=== PATIENT | male | born 1985 | race Caucasian/White ===

== ENCOUNTER 2023-04-24 18:22 | Emergency (ER) | payer SELFPAY ==
[2023-04-24 18:27] VITALS: BP 132/79; PULSE 76; RESP 20; TEMP 36.2; O2SAT 100; BMI 31.5
[2023-04-24] MEDS: 0.9 % SODIUM CHLORIDE 1000 ml 1,000 ML IV (19:01)
[2023-04-24] MEDS: ONDANSETRON 2 MG/ML inj 4 MG IVP (19:01)
--- NOTE | 2023-04-24 19:10 | ED_ITS ---
HPI - General Adult General Date Seen: 04/24/23 Chief complaint: Nausea/Vomiting Stated complaint: Vomiting Time Seen by Provider: 04/24/23 18:33 Source: patient Mode of arrival: ambulatory Limitations: no limitations History of Present Illness HPI narrative: Patient is a 37-year-old male with no pertinent medical problems presenting to the emergency department for nausea and vomiting. He states after he got off work at roughly 15:30 he started feeling very nauseated and started forcibly vomit. States initially he was vomiting up his stomach contents but since has some mostly retching with very minimal stomach acid coming out. He has never had symptoms like this before. Has had chills and cold sweats but has not had any fevers. States his abdominal pain but states it feels like it is all in the musculoskeletal earlier and it only started after [place] began forcefully vomiting. Has no known sick contacts. Patient is not taking any medication for this at home yet. Only socially drinks alcohol and denies any marijuana use. Denies chest pain, shortness of breath, dysuria, weakness, lightheadedness, dizziness. Does states he had 1 episode of loose stools today. Related Data Home Medications Medication Instructions Recorded Confirmed No Known Home Medications 04/24/23 04/24/23 Allergies Allergy/AdvReac Type Severity Reaction Status Date / Time No Known Drug Allergies Allergy Verified 04/24/23 18:32 Review of Systems Status of ROS: Reports: 10 or more systems reviewed and unremarkable except as noted in History and below [facility] Social History Smoking Status: Never smoker Do you use any of these nicotine containing products: None How often do you have a drink containing alcohol: monthly or less How often do you have six or more drinks on one occasion: Never AUDIT-C Alcohol total score: 1 Non-prescribed substance use: denies use service: No Exam Narrative: Exam Narrative: Const: Well-nourished, Well-developed, in mild distress Eyes: PERRL, no conjunctival injection, and symmetrical lids ENMT: Atraumatic external nose and ears. Moist mucous membranes. Neck: Symmetric, trachea midline, No thyromegaly. CVS: RRR, No murmurs or gallops. Peripheral pulses 2+ and equal in all extremities RESP: Unlabored respiratory effort. Clear to auscultation bilaterally. GI: Nontender/Nondistended, No rebound or guarding. MSK:Extremities w/o deformity, Normal Active ROM Skin: Warm, Dry. No rashes or lesions. Neuro: Normal Muscle tone, No focal neurological deficits. Psych: Awake, Alert, & Oriented x3. Appropriate mood and affect. Const: Vital Signs, click to edit/add: Vital Signs - 24 hr 04/24/23 18:27 Temperature 97.1 F L Pulse Rate [Right Pulse Oximeter] 76 Respiratory Rate 20 Blood Pressure [Ri ght Upper Arm] 132/79 Pulse Oximetry 100 Oxygen Delivery Me thod Room Air Course Vital Signs Vital signs: Initial Vital Signs Temperature 97.1 F L 04/24/23 18:27 Temperature Source Temporal Artery Scan 04/24/23 18:27 Pulse Rate 76 04/24/23 18:27 Pulse Rhythm Regular 04/24/23 18:27 Respiratory Rate 20 04/24/23 18:27 Blood Pressure 132/79 04/24/23 18:27 Blood Pressure Mean 96 04/24/23 18:27 Blood Pressure Position Semi-Fowlers 04/24/23 18:27 Pulse Oximetry 100 04/24/23 18:27 Oxygen Delivery Method Room Air 04/24/23 18:27 Vital Signs Temperature 97.1 F L 04/24/23 18:27 Pulse Rate 76 04/24/23 18:27 Respiratory Rate 20 04/24/23 18:27 Blood Pressure 132/79 04/24/23 18:27 Pulse Oximetry 100 04/24/23 18:27 Oxygen Delivery Method Room Air 04/24/23 18:27 Temperature 97.1 F L 04/24/23 18:27 Pulse Rate 76 04/24/23 18:27 Respiratory Rate 20 04/24/23 18:27 Blood Pressure 132/79 04/24/23 18:27 Pulse Oximetry 100 04/24/23 18:27 Oxygen Delivery Method Room Air 04/24/23 18:27 Medical Decision Making MDM Narrative Medical decision making narrative: Patient is a 37-year-old male presented emergency department for nausea and vomiting. Symptoms started around 1530 today. He does have some loose stool. Has had forceful vomiting. They state this is abnormal for him. Has had no sick contacts that he is aware of. No fevers but has had chills and cold sweats. Vital signs appear within normal limits. This patient will order a CBC and CMP. Lipase currently is a send out ENT is not having any abdominal pain and this is not appear to be pancreatitis at this time. Lab work returns showing a white count of 15. This is likely due to his vomiting and is more likely dehydration the stress reaction. He was given 1 L of normal saline. Zofran for nausea. After this he is feeling much better. Lab work shows normal LFTs and this is likely to be gallbladder or liver related. No history of abdominal surgeries unlikely to be an SBO. Electrolytes are all within normal limits. Most likely patient is suffering from a viral gastritis. Patient be discharged home with a prescription from Zofran prescribed through Sunday meds. Him and his are agreeable to this plan Lab Data Labs: Lab Results 04/24/23 04/24/23 Range/Units 18:55 18:56 WBC 15.01 H (4.50-11.00) K/uL RBC 5.30 (4.30-5.90) m/uL Hgb 14.8 (13.5-17.5) gm/dL Hct 43.6 (37.0-53.0) % MCV 82 (80-100) fL MCH 28 (26-34) pg MCHC 34 (32-36) gm/dL RDW Coeff of [place] 12.4 (11.5-15.5) % Plt Count 222 (140-440) K/uL Neut % (Auto) 85.7 H (42.0-72.0) % Lymph % (Auto) 9.2 L (20-44) % [place] % (Auto) 4.7 (0.0-11.0) % Eos % (Auto) 0.1 (0.0-7.0) % Baso % (Auto) 0.2 (0.0-3.0) % Neut # (Auto) 12.90 H (1.7-7.0) K/uL Lymph # (Auto) 1.40 (0.90-2.90) K/uL [place] # (Auto) 0.70 (0.00-0.90) K/UL Eos # (Auto) 0.00 (0.00-0.50) K/uL Baso # (Auto) 0.00 (0.00-0.30) K/uL Abs Immat Gran (auto) 0.00 (0.00-0.30) K/uL Imm/Tot Granulo (auto) 0.1 % Sodium 140 (135-149) mmol/L Potassium 3.8 (3.6-5.1) mmol/L Chloride 104 (96-114) mmol/L Carbon Dioxide 25 (20-32) mmol/L Anion Gap 11 (7-15) mEq/L BUN 15 (5-24) mg/dL Creatinine 0.7 (0.5-1.5) mg/dL Estimated Creat Clear 169.62 Estimated GFR 122 ml/min Glucose 139 H (60-115) mg/dL Calcium 8.7 (8.4-10.6) mg/dL Magnesium 1.9 (1.5-2.6) mg/dL Total Bilirubin 0.6 (0.1-1.5) mg/dL AST 33 (12-35) U/L ALT 29 (4-50) U/L Alkaline Phosphatase 42 (40-150) U/L NT-Pro-B Natriuret Pep Cancelled Total Protein 8.3 (6.0-8.3) g/dL Albumin 4.7 (3.3-5.0) g/dL Lipase Cancelled Discharge Plan Discharge Clinical Impression: Gastroenteritis Patient Disposition: Home, Self-Care Condition: Stable Instructions: Acute Nausea and Vomiting (DC) Additional Instructions: Most likely your having a viral gastritis. Take the Zofran as needed for nausea. Make sure since he started feeling nauseated take it in do not wait. Stable hydrated. Follow-up with the primary care provider. Return for new worsening symptoms. Prescriptions: No Action No Known Home Medications Follow Up/Referrals: Trang Lowery DO [Primary Care Provider] - Stand Alone Forms: [employer] Info Instructions
[2023-04-24 19:13] LABS: Basophils Percent Auto 0.2 % (0.0-3.0); Eosinophils Percent Auto 0.1 % (0.0-7.0); Hematocrit 43.6 % (37.0-53.0); Hemoglobin* 14.8 gm/dL (13.5-17.5); Immature Granulocytes Pct Auto 0.1 %; Lymphocytes Percent Auto 9.2 % (20-44); Mean Corpuscular HGB Conc 34 gm/dL (32-36); Mean Corpuscular Hemoglobin 28 pg (26-34); Mean Corpuscular Volume 82 fL (80-100); Monocytes Percent Auto 4.7 % (0.0-11.0); Neutrophils Percent Auto 85.7 % (42.0-72.0); Platelet Count* 222 K/uL (140-440); RDW Coefficient of Variation % 12.4 % (11.5-15.5); White Blood Count* 15.01 K/uL (4.50-11.00)
[2023-04-24 19:49] LABS: Albumin* 4.7 g/dL (3.3-5.0); Chloride* 104 mmol/L (96-114); Potassium* 3.8 mmol/L (3.6-5.1); Sodium* 140 mmol/L (135-149)
[2023-04-24 19:51] LABS: Creatinine* 0.7 mg/dL (0.5-1.5); Est. Creatinine Clearance* 169.62; Estimated Glomerular Filt Rate 122 ml/min; Slide Review Reflex No
[2023-04-24 19:52] LABS: Alanine Aminotransferase* 29 U/L (4-50); Alkaline Phosphatase* 42 U/L (40-150); Anion Gap 11 mEq/L (7-15); Aspartate Amino Transferase* 33 U/L (12-35); Bilirubin Total* 0.6 mg/dL (0.1-1.5); Blood Urea Nitrogen* 15 mg/dL (5-24); Calcium* 8.7 mg/dL (8.4-10.6); Carbon Dioxide* 25 mmol/L (20-32); Glucose* 139 mg/dL (60-115); Magnesium* 1.9 mg/dL (1.5-2.6); Total Protein* 8.3 g/dL (6.0-8.3)
[2023-04-24 20:08] VITALS: BP 128/71; PULSE 69; RESP 20; TEMP 36.9
== END 2023-04-24 20:09 | disposition home or self-care (01) ==
PROVIDERS: Emergency Provider Student in an Organized Health Care Education/Training Program; PCP Family Medicine
DX: K52.9 Noninfective gastroenteritis and colitis, unspecified (principal)
CPT/HCPCS: 36415; 80053; 83690; 83735; 83880; 85025; 96374; 99283; J2405; J7030